=== PATIENT | male | born 1940 | race Caucasian/White ===

== ENCOUNTER 2016-05-01 08:13 | Emergency (ER) | payer MEDICARE, OTHER ==
[~2016-05-01] VITALS: Ht 177.8 cm; Wt 93.9 kg
[~2016-05-01 08:13] MED LIST: ALBU8I INH; ASPI81TA82 PO; ATOR20TA42 PO; CITA20TA4 PO; CLOP75 PO; COZA100T PO; OMEP20TA39 PO
[2016-05-01 08:16] VITALS: BP 137/81; PULSE 96; RESP 18; TEMP 98.3; O2SAT 96
[2016-05-01] MEDS ORDERED: ASPI1TAB69 PO (08:27)
[2016-05-01] MEDS ORDERED: TAMS0.4C4 PO (08:27)
[2016-05-01] MEDS ORDERED: LOSA50TA PO (08:27)
[2016-05-01] MEDS ORDERED: OMEP40CA2 PO (08:27)
[2016-05-01] MEDS ORDERED: PROM6.256 PO (08:35)
[2016-05-01] MEDS ORDERED: AZIT250T3 PO (08:35)
--- NOTE | 2016-05-01 08:35 | PD ---
HPI Chief Complaint: Cold / Flu Symptoms Time Seen by Provider: 08:23 Travel History International Travel<30 days: No Contact w/Intl Traveler<30days: No Traveled to known affect area: No History of Present Illness HPI This is a 75-year-old male who presents to the emergency department with sore throat, nasal congestion, productive cough with yellow and green sputum and myalgias, constant, moderate severity, not getting better despite 1 week without therapy. Patient reports that he thought he was getting better yesterday but then overnight he woke up multiple times to cough. He says he smoked for several years 50 years ago. He has no other medical problems except for hypertension. He's had no sick contacts. PFSH Past Medical History Hx Anticoagulant Therapy: Yes (BABY ASA DAILY) Arthritis: Yes Asthma: Yes Autoimmune Disease: No Blood Disorders: No Anxiety: Yes Depression: No Heart Rhythm Problems: No Cancer: No Cardiovascular Problems: Yes (HTN) High Cholesterol: Yes (BOARDERLINE.) Chest Pain: No Congestive Heart Failure: No COPD: No Cerebrovascular Accident: Yes (TIA) Diabetes: No Diminished Hearing: No Endocrine: No Gastrointestinal Disorders: Yes GERD: Yes Genitourinary: No Hypertension: Yes Immune Disorder: No Implanted Vascular Access Dvce: Yes Musculoskeletal: Yes (ARTHRITIS) Neurologic: No Psychiatric: Yes Reproductive: No Respiratory: Yes Thyroid Disease: No Tetanus Vaccination: Unknown Past Surgical History Body Medical Devices: HIP REPLACEMENTS Cholecystectomy: Yes Joint Replacement: Yes (BILAT HIP REPLACEMENTS) Tonsillectomy: Yes Other Surgery: Yes (BILAT HIP REPLACEMENTS 06/11) Social History Alcohol Use: Yes (OCCAS. BEER) Tobacco Use: No (QUIT 50+ YRS AGO) Substance Use: No Allergies-Medications (Allergen,Severity, Reaction): Coded Allergies: No Known Allergies (Unverified , 05/01/16) Reported Meds & Prescriptions Reported Meds & Active Scripts Active Reported Tamsulosin (Tamsulosin HCl) 0.4 Mg Cap 0.4 Mg PO HS Omeprazole 40 Mg Cap 40 Mg PO DAILY Aspirin 81 Mg Tabdr 81 Mg PO DAILY Losartan (Losartan Potassium) 50 Mg Tab 50 Mg PO DAILY Review of Systems Except as stated in HPI: all other systems reviewed are Neg Physical Exam Narrative GENERAL:Well appearing, no acute distress SKIN: Warm and dry. HEAD: Atraumatic. Normocephalic. EYES: Pupils equal and round. No injection or drainage. ENT: Moist mucous membranes NECK: Trachea midline. CARDIOVASCULAR: Regular rate and rhythm. No murmur appreciated. RESPIRATORY: Clear to auscultation. Breath sounds equal bilaterally. GASTROINTESTINAL: Abdomen soft, non-tender, nondistended. MUSCULOSKELETAL: No obvious deformities. NEUROLOGICAL: Awake and alert. No obvious cranial nerve deficits. Moving all extremities. PSYCHIATRIC: Appropriate mood and affect; insight and judgment normal. Data Data Last Documented VS Vital Signs Date Time Temp Pulse Resp B/P Pulse Ox O2 Delivery O2 Flow Rate FiO2 05/01/16 08:24 16 05/01/16 08:16 98.3 96 137/81 96 MDM Medical Decision Making Medical Screen Exam Complete: Yes Emergency Medical Condition: Yes Interpretation(s) Afebrile, normal oxygen saturation Differential Diagnosis Bronchitis, pneumonia, viral syndrome, influenza Narrative Course This is a 75-year-old male who presents to the emergency department with sore throat, rhinorrhea, productive cough and subjective fever. He is very well- appearing on exam with a normal oxygen saturation. Given the duration of his symptoms I think he would benefit from azithromycin empirically for walking pneumonia and codeine cough suppressant for evenings. I encouraged him to continue to stay hydrated and to use anti-inflammatories for myalgias and throat pain. I don't think he requires any additional diagnostics at this time. Diagnosis Primary Impression: Acute bronchitis Qualified Code: J20.9 - Acute bronchitis, unspecified organism Patient Instructions: General Instructions Additional Instructions: If you develop severe chest pain, shortness of breath, sweating, lightheadedness , dizziness or difficulty breathing return to the emergency department immediately. Followup with your primary care physician in 2-3 days if your symptoms are not resolved. Med/Other Pt SpecificInfo: Prescription(s) given Scripts Promethazine-Codeine Liq 6.25-10 Mg/5 Ml Syrp5 Ml PO Q4H PRN (COUGH AND/OR COLD SYMPTOMS) #100 ML Prov:Mar Mane MD 05/01/16 Azithromycin 250 Mg [id number] Mg PO DIRECTED #6 TAB Take 2 tabs (500 mg) on day 1 then 1 tab daily x 4 days. Prov:Mar Mane MD 05/01/16 Disposition: 01 DISCHARGE HOME Condition: Stable Mar Mane MD May 01, 2016 08:35
== END 2016-05-01 08:55 | disposition home or self-care (01) ==
LOC: PHED 08:13
DX: J20.9 Acute bronchitis, unspecified (principal); I10 Essential (primary) hypertension; J45.909 Unspecified asthma, uncomplicated; E78.00 Pure hypercholesterolemia, unspecified; Z87.891 Personal history of nicotine dependence; Z86.73 Personal history of transient ischemic attack (TIA), and cerebral infarction without residual deficits
CPT/HCPCS: 99283

== ENCOUNTER 2016-05-07 15:14 | Emergency (ER) | payer MEDICARE, OTHER ==
[~2016-05-07] VITALS: Ht 177.8 cm; Wt 93.5 kg
[~2016-05-07 15:14] MED LIST changes: -ALBU8I INH; +ASPI1TAB69 PO; -ASPI81TA82 PO; -ATOR20TA42 PO; +AZIT250T3 PO; -CITA20TA4 PO; -CLOP75 PO; -COZA100T PO; +LOSA50TA PO; -OMEP20TA39 PO; +OMEP40CA2 PO; +PROM6.256 PO; +TAMS0.4C4 PO
[2016-05-07 15:29] VITALS: BP 100/65; PULSE 75; RESP 16; TEMP 98.5; O2SAT 95
[2016-05-07] MEDS ORDERED: PRED20 PO (16:50)
[2016-05-07] MEDS ORDERED: ALBUAER3 INH (16:50)
--- NOTE | 2016-05-07 16:50 | PD ---
HPI . Cough Chief Complaint: Respiratory Symptoms Time Seen by Provider: 16:34 Travel History International Travel<30 days: No Contact w/Intl Traveler<30days: No Traveled to known affect area: No History of Present Illness HPI Patient presents with recurrence of cough. Patient reports that he was seen here about a week ago for same as bronchitis. He states he was given a Z-Dyllan. He states that he subsequently followed up with his PMD who added an MDI and prednisone. He is still on prednisone 60 mg a day. He does have a tapered dose ordered. He states that his symptoms improved but then worsened yesterday. He subsequently presents back to us today further treatment. [id number]: Chest DURATION: A week TIMING: It initially improved following medication is now worsened again ASSOCIATED SYMPTOMS: Subjective fever PFSH Past Medical History Hx Anticoagulant Therapy: Yes (asa 81mg) Arthritis: Yes Asthma: Yes Autoimmune Disease: No Blood Disorders: No Anxiety: Yes Depression: No Heart Rhythm Problems: No Cancer: No Cardiovascular Problems: Yes (htn on meds) High Cholesterol: Yes (BOARDERLINE.) Chest Pain: No Congestive Heart Failure: No COPD: No Cerebrovascular Accident: Yes (tia's) Diabetes: No Diminished Hearing: No Endocrine: No Gastrointestinal Disorders: Yes GERD: Yes Genitourinary: No Hypertension: Yes Immune Disorder: No Implanted Vascular Access Dvce: Yes Musculoskeletal: Yes (ARTHRITIS) Neurologic: No Psychiatric: Yes Reproductive: No Respiratory: Yes (asthma) Thyroid Disease: No Past Surgical History Body Medical Devices: HIP REPLACEMENTS Cholecystectomy: Yes Joint Replacement: Yes (BILAT HIP REPLACEMENTS) Tonsillectomy: Yes Other Surgery: Yes (BILAT HIP REPLACEMENTS 06/11) Social History Alcohol Use: Yes (OCCAS. BEER) Tobacco Use: No (QUIT 50+ YRS AGO) Substance Use: No Allergies-Medications (Allergen,Severity, Reaction): Coded Allergies: No Known Allergies (Unverified , 05/07/16) Reported Meds & Prescriptions Reported Meds & Active Scripts Active Promethazine-Codeine Liq 6.25-10 Mg/5 Ml Syrp 5 Ml PO Q4H PRN Azithromycin 250 Mg Tab 250 Mg PO DIRECTED Take 2 tabs (500 mg) on day 1 then 1 tab daily x 4 days. Reported Tamsulosin (Tamsulosin HCl) 0.4 Mg Cap 0.4 Mg PO HS Omeprazole 40 Mg Cap 40 Mg PO DAILY Aspirin 81 Mg Tabdr 81 Mg PO DAILY Losartan (Losartan Potassium) 50 Mg Tab 50 Mg PO DAILY Review of Systems Except as stated in HPI: all other systems reviewed are Neg General / Constitutional: Positive: Fever, Chills Respiratory: Positive: Cough, Shortness of Breath Physical Exam Narrative GENERAL: Healthy-appearing older man in no acute distress. SKIN: Warm and dry. HEAD: Atraumatic. Normocephalic. EYES: Pupils equal and round. ENT: No nasal bleeding or discharge. Mucous membranes pink and moist. NECK: Trachea midline. Neck is supple. CARDIOVASCULAR: Regular rate and rhythm. Heart sounds are normal. RESPIRATORY: No accessory muscle use. Lungs clear with full air movement throughout. His respiratory rate is about 16 and sats are 95% on room air. GASTROINTESTINAL: Abdomen soft, non-tender, nondistended. MUSCULOSKELETAL: No obvious deformities. No edema. NEUROLOGICAL: Awake and alert. No obvious cranial nerve deficits. Motor grossly within normal limits. Normal speech. PSYCHIATRIC: Appropriate mood and affect; insight and judgment normal. Data Data Last Documented VS Vital Signs Date Time Temp Pulse Resp B/P Pulse Ox O2 Delivery O2 Flow Rate FiO2 05/07/16 15:29 98.5 75 16 100/65 95 MDM Medical Decision Making Medical Screen Exam Complete: Yes Emergency Medical Condition: Yes Differential Diagnosis Differential diagnosis includes but is not limited to viral respiratory illness , bronchitis, pneumonia, allergies, CHF, asthma/COPD. Narrative Course Patient presents for evaluation of recurrent cough. His lungs are clear. He is not febrile. He is not tachypneic or hypoxic. I do not believe that this patient needs any change in his current care. Already on an inhaler and prednisone. Diagnosis Primary Impression: Acute bronchitis Qualified Code: J20.9 - Acute bronchitis, unspecified organism Patient Instructions: Acute Bronchitis (DC), General Instructions Additional Instructions: You may take plain Mucinex, 1200 mg twice a day as needed to loosen your cough. You may take a cough syrup such as Delsym as needed for cough. Disposition: 01 DISCHARGE HOME Condition: Stable Clarisse Choi MD May 07, 2016 16:50
== END 2016-05-07 19:24 | disposition home or self-care (01) ==
LOC: PHED 15:14
DX: J20.9 Acute bronchitis, unspecified (principal); J45.909 Unspecified asthma, uncomplicated; I10 Essential (primary) hypertension; E78.00 Pure hypercholesterolemia, unspecified; K21.9 Gastro-esophageal reflux disease without esophagitis; Z86.73 Personal history of transient ischemic attack (TIA), and cerebral infarction without residual deficits; Z79.01 Long term (current) use of anticoagulants; Z87.891 Personal history of nicotine dependence
CPT/HCPCS: 99283